=== PATIENT | male | born 1960 | race Caucasian/White ===

== ENCOUNTER 2018-10-30 08:31 | Outpatient (CLI) | payer BC | END 2018-10-30 08:32 | disposition home or self-care (01) | LOC: LAB.F 08:31 | PROVIDERS: ATTEND Urology | DX: R97.20 Elevated prostate specific antigen [PSA] (principal) | CPT/HCPCS: 36415; 84153 ==

== ENCOUNTER 2019-12-22 15:37 | Emergency (ER) | payer BC ==
[2019-12-22] MEDS ORDERED: SODIUM CHLORIDE 0.9% 1,000 ML IV ONE (16:01)
[2019-12-22] MEDS ORDERED: MECLIZINE 12.5 MG TABLET PO STA (16:01)
[2019-12-22] MEDS ORDERED: ONDANSETRON 4 MG/2 ML VIAL IVP STA (16:01)
--- NOTE | 2019-12-22 16:04 | ED Physician Documentation ---
PD HPI FOCAL NEURO - Stated complaint Stated Complaint: VOMITING, DIZZY - Chief complaint Chief Complaint: Abd Pain - History obtained from History obtained from: Patient (He been having intermittent vertigo over the last 2 weeks that was fleeting, lasting maybe a minute at a time. For the last 2 days the vertigo has been much more severe and constant and throwing up all day since yesterday. He feels tremulous and chilled, denies weakness, numbness, or tingling of the extremities. No headache. Before 2 weeks ago he had never had trouble with vertigo before. He did try Zofran yesterday which was helpful for the nausea. He tried an Kassie maneuver at home but was unable to tolerate it.) Review of Systems Ten Systems: 10 systems reviewed and negative Constitutional: denies: Fever, Chills Eyes: denies: Loss of vision, Decreased vision Ears: denies: Loss of hearing, Ear pain, Drainage/discharge Nose: denies: Rhinorrhea / runny nose, Congestion Throat: denies: Sore throat Cardiac: denies: Chest pain / pressure, Palpitations PD PAST MEDICAL HISTORY - Past Medical History Cardiovascular: None Respiratory: None Endocrine/Autoimmune: None GI: None : None, Benign prostate hypertrophy HEENT: None Psych: None Musculoskeletal: None Derm: None - Past Surgical History General: Other - Present Medications Home Medications: Ambulatory Orders Medication Instructions Recorded Confirmed Finasteride 5 mg PO 09/17/13 09/17/13 - Allergies Allergies/Adverse Reactions: Allergies Allergy/AdvReac Type Severity Reaction Status Date / Time No Known Drug Allergies Allergy Verified 09/17/13 07:41 PD ED PE NORMAL - Vitals Vital signs reviewed: Yes - General General: Alert and oriented X 3, No acute distress - HEENT HEENT: EOMI (With left sided nystagmus), Other (He is laying in the left lateral decubitus position with his left ear down) - Neck Neck: Supple, no meningeal sign, No bony TTP - Cardiac Cardiac: RRR, No murmur - Respiratory Respiratory: No respiratory distress, Clear bilaterally - Abdomen Abdomen: Normal bowel sounds, Soft, Non tender - Back Back: No CVA TTP, No spinal TTP - Derm Derm: Normal color, Warm and dry - Neuro Neuro: Alert and oriented X 3, No motor deficit, No sensory deficit, Other (Tremulous on [id number] testing without obvious ataxia, it is symmetric.) Eye Opening: Spontaneous Motor: Obeys Commands Verbal: Oriented GCS Score: 15 NIHSS - Time Time: 13:55 - Level of Consciousness Level of consciousness: (0) Alert, Keenly responsive LOC Questions: (0) Answers both Q's correct LOC Commands: (0) Performs both correctly - Gaze Best Gaze: (0) Normal - Visual Visual: (0) No loss - Facial Palsy Facial Palsy: (0) Normal, symmetrical movement - Motor Arms (both separate) Motor Arm (right): (0) No drift Motor Arm (left): (0) No drift - Motor Legs (both separate) Motor Leg (right): (0) No drift Motor Leg (left): (0) No drift - Limb Ataxia Limb Ataxia: (0) Absent - Sensory Sensory: (0) Normal - Best Language Best Language: (0) No aphasia - Dysarthria Dysarthria: (0) Normal - Extinction and Inattention (formally neg Extinction and inattention: (0) No abnormality - Total Score/Results Total Score/Result: 0 Results - Vitals Vitals: Vital Signs - 24 hr 12/22/19 12/22/19 12/22/19 15:47 16:13 17:43 Temperature 37.2 C Heart Rate 88 69 72 Respiratory 18 16 14 Rate Blood Pressure 167/103 H 164/92 H 169/96 H O2 Saturation 99 100 98 12/22/19 19:30 Temperature Heart Rate 70 Respiratory 20 Rate Blood Pressure 183/110 H O2 Saturation 98 Oxygen O2 Source Room air - Labs Labs: Laboratory Tests 12/22/19 12/22/19 16:03 16:03 WBC 12.4 H RBC 5.25 Hgb 15.4 Hct 44.2 MCV 84.2 MCH 29.3 MCHC 34.8 RDW 13.1 Plt Count 325 MPV 9.3 Neut # (Auto) 9.8 H Lymph # (Auto) 1.5 [place] # (Auto) 1.0 Eos # (Auto) 0.0 Baso # (Auto) 0.0 Absolute Nucleated RBC 0.00 Nucleated RBC % 0.0 Sodium 137 Potassium 3.9 Chloride 96 L Carbon Dioxide 27 Anion Gap 14.0 H BUN 19 Creatinine 0.9 Estimated GFR (MDRD) 86 L Glucose 147 H Calcium 9.6 Total Bilirubin 0.8 AST 25 ALT 20 Alkaline Phosphatase 50 Total Protein 7.6 Albumin 4.5 Globulin 3.1 Albumin/Globulin Ratio 1.5 Lipase 24 - Rads (name of study) MRI Brain Radiology: EMP read contemporaneously (No CVA or mass, small vessel ischemic disease and sinus mucosal thickening) PD MEDICAL DECISION MAKING - ED course ED course: 59-year-old gentleman with 2 days of vertigo and vomiting. Seemed peripheral but the long time course is concerning for CVA and an MRI of the brain was done without evidence of same. After the administration of meclizine he was feeling much better and we were able to complete an Kassie maneuver with improvement but not complete help but he passed an road test here with a walker. Departure - Departure Disposition: 01 Home, Self Care Clinical Impression: Vomiting, Vertigo Comments: Downtime Discharge instructions for Jason Lopez Date of service 12/22/2019 Attending physician Alexander Stovall MD Diagnosis vertigo Condition stable You were seen today for vertigo, there was a concern for stroke but MRI ruled this out. You are feeling better after meclizine and able to walk. I am giving you a prescription for this. You can also do the Kassie maneuver which we did here with some improvement at home. Always start with the right ear down. Foll ow-up with your doctor within 1 week. Return for new or worsening symptoms. Do not drive while taking meclizine as it is sedating. Prescription Meclizine 25 mg p.o. every 6 as needed dizziness #20
[2019-12-22 16:12] LABS: BASOPHILS % (AUTO) 0.3 %; EOSINOPHILS % (AUTO) 0.1 %; HGB - HEMOGLOBIN 15.4 g/dL (14.0-18.0); LYMPHOCYTES # (AUTO) 1.5 10^3/uL (1.5-3.5); LYMPHOCYTES % (AUTO) 12.1 %; MEAN CORPUSCULAR HEMOGLOBIN 29.3 pg (27.0-31.0); MEAN CORPUSCULAR HGB CONC 34.8 g/dL (32.0-36.0); MEAN CORPUSCULAR VOLUME 84.2 fL (80.0-94.0); MEAN PLATELET VOLUME 9.3 fL (7.4-11.4); MONOCYTES % (AUTO) 7.9 %; NEUTROPHILS # (AUTO) 9.8 10^3/uL (1.5-6.6); NEUTROPHILS % (AUTO) 78.9 %; PLT - PLATELET COUNT 325 10^3/uL (130-450); RED BLOOD COUNT 5.25 10^6/uL (4.70-6.10); RED CELL DISTRIBUTION WIDTH 13.1 % (12.0-15.0); WHITE BLOOD COUNT 12.4 x10^3/uL (4.8-10.8)
[2019-12-22 18:04] LABS: ALBUMIN 4.5 g/dL (3.2-5.5); ALBUMIN/GLOBULIN RATIO 1.5 (1.0-2.2); BILIRUBIN,TOTAL 0.8 mg/dL (0.2-1.0); CALCIUM 9.6 mg/dL (8.5-10.3); CREATININE 0.9 mg/dL (0.6-1.2); TOTAL PROTEIN 7.6 g/dL (6.7-8.2)
--- NOTE | 2019-12-22 21:40 | MRI Report ---
Reason: vertigo Procedure Date: 12/22/2019 Accession Number: [id number] / [id number] Procedure: MRI - Brain W/O CPT Code: Final Report FULL RESULT: EXAM: MRI BRAIN WITHOUT CONTRAST EXAM DATE: 12/22/2019 06:11 PM. CLINICAL HISTORY: Vertigo. COMPARISON: None. TECHNIQUE: Multiplanar, multisequence T1-weighted and fluid-sensitive MR sequences of the brain were performed. Sequences optimized for routine evaluation. Other: None. IV Contrast: None. FINDINGS: No abnormal restricted diffusion signal or magnetic susceptibility is identified in the brain parenchyma. No cerebellar tonsillar ectopia is identified. Age-appropriate prominence of the ventricles and sulci is noted. There are a few punctate FLAIR hyperintensities scattered throughout the cerebral hemisphere white matter. In addition there is a 1.1 cm FLAIR hyperintensity in the left frontal white matter. There is motion degradation on some of the imaging sequences. No abnormal T2 signal is present in the infratentorial brain. There is an expected flow void in the distal cervical ICA below the skull base bilaterally. The distal left cervical vertebral artery is poorly visualized. This might well be secondary to this being developmentally small. No mass is present in either orbit. Scattered paranasal sinus mucosal thickening is seen. No mass is present in either Meckel's cave. T2 hyperintense signal is seen in the mastoid air cells on the right. No abnormal T1 shortening is present in the brain parenchyma. IMPRESSION: 1. No acute CVA. 2. No intracranial mass. 3. FLAIR hyperintensities are seen in the cerebral hemisphere white matter bilaterally and in the amarilys. These are nonspecific and are commonly seen secondary to small vessel ischemic change. 4. Scattered paranasal sinus mucosal thickening. 5. Fluid versus mucosal thickening in mastoid air cells on the right. RADIA
[2019-12-22 23:43] VITALS: BP 174/111
== END 2019-12-22 21:45 | disposition home or self-care (01) ==
LOC: ED 15:37
DX: R42 Dizziness and giddiness (principal)
CPT/HCPCS: 36415; 70551; 80053; 83690; 85025; 96361; 96374; 99284; A9270

== ENCOUNTER 2020-06-09 08:11 | Outpatient (CLI) | payer BC | END 2020-06-09 08:12 | disposition home or self-care (01) | LOC: LAB.S 08:11 | PROVIDERS: ATTEND Urology | DX: R97.20 Elevated prostate specific antigen [PSA] (principal) | CPT/HCPCS: 36415; 84153 ==

== ENCOUNTER 2020-12-15 08:20 | Day surgery (SDC) | payer BC ==
[2020-12-15] MEDS ORDERED: LACTATED RINGERS 1,000 ML IV ONE ×2 (08:51→09:54)
[2020-12-15] MEDS ORDERED: fentaNYL 250 MCG/5 ML VIAL ONE (09:38)
[2020-12-15] MEDS ORDERED: MIDAZOLAM 2 MG/2 ML VIAL ONE ×2 (09:38→09:51)
[2020-12-15 10:44] VITALS: BP 153/87
== END 2020-12-15 08:21 | disposition home or self-care (01) ==
LOC: SDS 08:20
PROVIDERS: ATTEND Surgery
DX: Z12.11 Encounter for screening for malignant neoplasm of colon (principal); N40.2 Nodular prostate without lower urinary tract symptoms; K57.30 Diverticulosis of large intestine without perforation or abscess without bleeding; K64.8 Other hemorrhoids; Z86.010 Personal history of colon polyps; I10 Essential (primary) hypertension
CPT/HCPCS: 45378; J3010; J7120

== ENCOUNTER 2021-07-05 08:41 | Outpatient (CLI) | payer BC ==
[2021-07-05 15:22] LABS: PSA FREE 1.43 ng/mL (0.16-2.81)
[2021-07-05 15:23] LABS: PSA TOTAL 7.42 ng/mL (0.000-2.000)
== END 2021-07-05 08:42 | disposition home or self-care (01) ==
LOC: LAB.S 08:41
PROVIDERS: ATTEND Urology
DX: R97.20 Elevated prostate specific antigen [PSA] (principal)
CPT/HCPCS: 36415; 84153; 84154

== ENCOUNTER 2021-09-01 11:02 | Outpatient (CLI) | payer BC ==
[2021-09-01 14:33] LABS: BASOPHILS # (AUTO) 0.1 10^3/uL (0.0-0.1); BASOPHILS % (AUTO) 0.7 %; EOSINOPHILS # (AUTO) 0.1 10^3/uL (0.0-0.7); EOSINOPHILS % (AUTO) 1.4 %; HCT - HEMATOCRIT 42.7 % (42.0-52.0); HGB - HEMOGLOBIN 14.1 g/dL (14.0-18.0); LYMPHOCYTES # (AUTO) 1.9 10^3/uL (1.5-3.5); LYMPHOCYTES % (AUTO) 23.9 %; MEAN CORPUSCULAR HEMOGLOBIN 28.8 pg (27.0-31.0); MEAN CORPUSCULAR VOLUME 87.3 fL (80.0-94.0); MEAN PLATELET VOLUME 10.1 fL (7.4-11.4); MONOCYTES # (AUTO) 0.8 10^3/uL (0.0-1.0); MONOCYTES % (AUTO) 9.6 %; NEUTROPHILS # (AUTO) 5.1 10^3/uL (1.5-6.6); PLT - PLATELET COUNT 365 10^3/uL (130-450); RED BLOOD COUNT 4.89 10^6/uL (4.70-6.10); RED CELL DISTRIBUTION WIDTH 13.8 % (12.0-15.0)
[2021-09-01 15:24] LABS: ALBUMIN/GLOBULIN RATIO 1.5 (1.0-2.2); BILIRUBIN,TOTAL 0.8 mg/dL (0.2-1.0); CALCIUM 9.3 mg/dL (8.5-10.3); CREATININE 0.8 mg/dL (0.6-1.2); POTASSIUM 4.1 mmol/L (3.5-5.0); TOTAL PROTEIN 6.6 g/dL (6.7-8.2)
[2021-09-01 15:39] LABS: THYROID STIMULATING HORMONE 1.38 uIU/mL (0.34-5.60)
--- NOTE | 2021-09-01 16:52 | XRAY Report ---
PROCEDURE: Chest 2 View X-Ray INDICATIONS: COUGH TECHNIQUE: 2 view(s) of the chest. COMPARISON: None. FINDINGS: Surgical changes and devices: None. Lungs and pleura: Small bilateral pleural effusion is seen with bibasilar atelectasis/small infiltrat es. Increased bronchovascular markings in bilateral hilar region also noted. No gross pneumothorax. Mediastinum: Tortuous thoracic aorta is seen. Heart size is normal. Bones and chest wall: No suspicious bony abnormalities. Soft tissues appear unremarkable. IMPRESSION: Mild congestion and small bilateral pleural effusion with by basilar small infiltrate/at electasis. No gross pneumothorax. Reviewed by: Enmanuel Harris MD on 09/01/2021 4:51 PM PST Approved by: Enmanuel Harris MD on 09/01/2021 4:51 PM PST Station ID: [id number]
== END 2021-09-01 11:03 | disposition home or self-care (01) ==
LOC: DI.S 11:02
PROVIDERS: ATTEND Nurse Practitioner Family
DX: R05.9 Cough, unspecified (principal); I10 Essential (primary) hypertension; R09.89 Other specified symptoms and signs involving the circulatory and respiratory systems; J90 Pleural effusion, not elsewhere classified; J98.11 Atelectasis
CPT/HCPCS: 36415; 80053; 83880; 84443; 85025

== ENCOUNTER 2021-09-08 10:08 | Outpatient (CLI) | payer BC ==
[2021-09-08 15:19] LABS: CALCIUM 9.5 mg/dL (8.5-10.3); CREATININE 0.9 mg/dL (0.6-1.2); POTASSIUM 3.9 mmol/L (3.5-5.0)
== END 2021-09-08 10:09 | disposition home or self-care (01) ==
LOC: LAB.S 10:08
PROVIDERS: ATTEND Nurse Practitioner Family
DX: I10 Essential (primary) hypertension (principal)
CPT/HCPCS: 36415; 80048

== ENCOUNTER 2021-10-06 09:45 | Outpatient (CLI) | payer BC ==
[2021-10-06 15:46] LABS: CALCIUM 9.4 mg/dL (8.5-10.3); CREATININE 0.9 mg/dL (0.6-1.2); POTASSIUM 3.7 mmol/L (3.5-5.0)
== END 2021-10-06 09:46 | disposition home or self-care (01) ==
LOC: LAB.S 09:45
PROVIDERS: ATTEND Internal Medicine Cardiovascular Disease
DX: I10 Essential (primary) hypertension (principal)
CPT/HCPCS: 36415; 80048

== ENCOUNTER 2021-10-19 08:06 | Outpatient (CLI) | payer BC | END 2021-10-19 08:07 | disposition home or self-care (01) | LOC: DI 08:06 | PROVIDERS: ATTEND Nurse Practitioner Family | DX: R01.1 Cardiac murmur, unspecified (principal); I34.0 Nonrheumatic mitral (valve) insufficiency; I51.7 Cardiomegaly; I35.8 Other nonrheumatic aortic valve disorders; I34.1 Nonrheumatic mitral (valve) prolapse; I87.8 Other specified disorders of veins | CPT/HCPCS: 93306 ==

== ENCOUNTER 2021-11-26 04:18 | Outpatient (CLI) | payer BC | END 2021-11-26 04:19 | disposition critical access hospital (66) | LOC: EMS 04:18 | DX: R07.9 Chest pain, unspecified (principal) | CPT/HCPCS: A0425; A0429 ==

== ENCOUNTER 2021-11-26 04:46 | Observation (INO) | payer BC ==
--- NOTE | 2021-11-26 04:49 | ED Physician Documentation ---
PD HPI CHEST PAIN - Stated complaint Stated Complaint: SOA - History obtained from History obtained from: Patient - History of Present Illness Timing - onset: Enter time (03:00), Today Timing - onset during: Sleep Timing - details: Abrupt onset Pain level now: 4 Quality: Pain Location: Left chest Radiation: Other (no radiation) Improved by: Rest Worsened by: Exertion ((dyspnea worse with exertion)) Associated symptoms: Shortness of air, Diaphoresis. No: Nausea, Vomiting, Palpitations Similar symptoms before: No diagnosis Recently seen: Not recently seen - Additional information Additional information: BIBA. Patient awoke from sleep approximately 3 AM with dyspnea and mild left- sided chest pain. Symptoms worse with lying supine, improved with sitting up (particularly the dyspnea), and the dyspnea was markedly worse with any exertion. EMS noted 87% pulse ox on room air, improved to 96% with 2 liters [place] oxygen; patient has no pulmonary diagnoses and does not use oxygen at home. Denies cough, denies fever. He is COVID vaccinated with booster. Review of Systems Constitutional: reports: Reviewed and negative Eyes: reports: Reviewed and negative Ears: reports: Reviewed and negative Nose: reports: Reviewed and negative Throat: reports: Reviewed and negative Cardiac: reports: Chest pain / pressure. denies: Palpitations, Pedal edema, Calf pain Respiratory: reports: Dyspnea. denies: Cough, Hemoptysis, Wheezing GI: reports: Reviewed and negative : denies: Dysuria, Frequency Skin: reports: Reviewed and negative Musculoskeletal: reports: Reviewed and negative Neurologic: reports: Reviewed and negative PD PAST MEDICAL HISTORY - Past Medical History Cardiovascular: Hypertension Respiratory: None Endocrine/Autoimmune: None GI: Colon polyps : None HEENT: None Psych: None Musculoskeletal: None Derm: None - Past Surgical History Past Surgical History: No General: Other - Present Medications Home Medications: Ambulatory Orders Medication Instructions Recorded Confirmed Finasteride 5 mg PO DAILY 09/17/13 11/26/21 Valsartan 160 mg PO DAILY 11/26/21 11/26/21 hydroCHLOROthiazide [Hydrodiuril] 12.5 mg PO DAILY 11/26/21 11/26/21 - Allergies Allergies/Adverse Reactions: Allergies Allergy/AdvReac Type Severity Reaction Status Date / Time No Known Drug Allergies Allergy Verified 11/26/21 05:56 - Social History Does the pt smoke?: No Smoking Status: Never smoker Does the pt drink ETOH?: No Does the pt have substance abuse?: No - Immunizations Immunizations are current?: Yes PD ED PE NORMAL - Vitals Vital signs reviewed: Yes - General General: Alert and oriented X 3, No acute distress, Well developed/nourished - HEENT HEENT: Moist mucous membranes - Neck Neck: Supple, no meningeal sign - Cardiac Cardiac: RRR - Respiratory Respiratory: No respiratory distress (at rest (later in ED stay, obvious respiratory distress when ambulating to/from bathroom)) - Abdomen Abdomen: Soft, Non tender - Back Back: No CVA TTP - Derm Derm: Normal color, Warm and dry - Extremities Extremities: No edema PD ED PE EXPANDED - Cardiac Cardiac: Regular Rhythm, Murmur Present (3/6 WAYNE diffusely but greatest at apex) - Respiratory Respiratory: Other (bibasilar rales) Results - Vitals Vitals: Vital Signs - 24 hr 11/26/21 11/26/21 11/26/21 04:54 05:18 05:19 Temperature 37.6 C Heart Rate 106 H 88 Respiratory 22 33 H 21 Rate Blood Pressure 174/118 H 168/103 H O2 Saturation 92 88 L 98 11/26/21 11/26/21 11/26/21 06:36 07:54 08:58 Temperature Heart Rate 84 86 Respiratory 20 18 28 H Rate Blood Pressure 116/115 H 152/100 H 141/95 H O2 Saturation 96 96 90 L Oxygen O2 Source Room air - EKG (time done) No standard instances Rate: Rate (enter#) (83) Rhythm: NSR [place]: Normal Intervals: Normal NV QRS: Normal Ischemia: Normal ST segments, Other (prominent R wave V2) - Labs Labs: Laboratory Tests 11/26/21 11/26/21 11/26/21 05:24 05:24 05:24 WBC 9.6 RBC 5.04 Hgb 14.6 Hct 42.3 MCV 83.9 MCH 29.0 MCHC 34.5 RDW 13.6 Plt Count 343 MPV 9.6 Neut # (Auto) 7.0 H Lymph # (Auto) 1.7 [place] # (Auto) 0.7 Eos # (Auto) 0.1 Baso # (Auto) 0.1 Absolute Nucleated RBC 0.00 Nucleated RBC % 0.0 Sodium 138 Potassium 3.5 Chloride 102 Carbon Dioxide 24 Anion Gap 12.0 BUN 16 Creatinine 0.8 Estimated GFR (MDRD) 98 Glucose 115 H Calcium 8.9 Total Bilirubin 1.0 AST 23 ALT 18 Alkaline Phosphatase 40 L Troponin I High Sens 20.5 H* B-Natriuretic Peptide Total Protein 7.4 Albumin 4.3 Globulin 3.1 Albumin/Globulin Ratio 1.4 Lipase 32 Nasal Adenovirus (PCR) Nasal B. parapertussis DNA (PCR) Nasal Coronavir 229E PCR Nasal Coronavir HKU1 PCR Nasal Coronavir NL63 PCR Nasal Coronavir OC43 PCR Nasal Enterovir/Rhinovir PCR Nasal Influenza B PCR Nasal Influenza A PCR Nasal Parainfluen 1 PCR Nasal Parainfluen 2 PCR Nasal Parainfluen 3 PCR Nasal Parainfluen 4 PCR Nasal RSV (PCR) Nasal B.pertussis DNA PCR Nasal C.pneumoniae (PCR) Imtiaz Human Metapneumo PCR Nasal M.pneumoniae (PCR) Nasal SARS-CoV-2 (PCR) 11/26/21 11/26/21 05:24 06:00 WBC RBC Hgb Hct MCV MCH MCHC RDW Plt Count MPV Neut # (Auto) Lymph # (Auto) [place] # (Auto) Eos # (Auto) Baso # (Auto) Absolute Nucleated RBC Nucleated RBC % Sodium Potassium Chloride Carbon Dioxide Anion Gap BUN Creatinine Estimated GFR (MDRD) Glucose Calcium Total Bilirubin AST ALT Alkaline Phosphatase Troponin I High Sens B-Natriuretic Peptide 280 H Total Protein Albumin Globulin Albumin/Globulin Ratio Lipase Nasal Adenovirus (PCR) NOT DETECTED Nasal B. parapertussis DNA (PCR) NOT DETECTED Nasal Coronavir 229E PCR NOT DETECTED Nasal Coronavir HKU1 PCR NOT DETECTED Nasal Coronavir NL63 PCR NOT DETECTED Nasal Coronavir OC43 PCR NOT DETECTED Nasal Enterovir/Rhinovir PCR NOT DETECTED Nasal Influenza B PCR NOT DETECTED Nasal Influenza A PCR NOT DETECTED Nasal Parainfluen 1 PCR NOT DETECTED Nasal Parainfluen 2 PCR NOT DETECTED Nasal Parainfluen 3 PCR NOT DETECTED Nasal Parainfluen 4 PCR NOT DETECTED Nasal RSV (PCR) NOT DETECTED Nasal B.pertussis DNA PCR NOT DETECTED Nasal C.pneumoniae (PCR) NOT DETECTED Imtiaz Human Metapneumo PCR NOT DETECTED Nasal M.pneumoniae (PCR) NOT DETECTED Nasal SARS-CoV-2 (PCR) NOT DETECTED - Rads (name of study) chest xray Radiology: Prelim report reviewed, See rad report CT chest Radiology: Prelim report reviewed, See rad report PD MEDICAL DECISION MAKING - ED course Complexity details: reviewed old records, reviewed results, re-evaluated patient, considered differential, d/w patient ED course: chief complaint is dyspnea waking him from sleep 3 AM, markedly worse with exertion. He is hypoxic on room air but corrects to mid 90s with 2 liters NC oxygen. CXR shows bilateral pleural effusions as well as left lower lobe airspace disease s/o pneumonia. He is afebrile and WBC normal and thus CT chest undertaken to investigate PE as possible cause; the result is pending at end of my shift, care of patient turned over to Dr. Treadwell pending results and subsequent disposition. He is given 60 lasix IV early in ED stay. He had echocardiogram performed 10/19/21 which showed preserved EF 55-60%, moderate-severe mitral regurgitation Departure - Departure Disposition: ED Place in Observation Clinical Impression: Exercise hypoxemia, New onset of congestive heart failure, Pleural effusion Dyspnea Qualifiers: Dyspnea type: shortness of breath Qualified Code(s): R06.02 - Shortness of breath Condition: Stable Discharge Date/Time: 11/26/21 11:08
[2021-11-26 05:30] LABS: BASOPHILS # (AUTO) 0.1 10^3/uL (0.0-0.1); BASOPHILS % (AUTO) 0.7 %; EOSINOPHILS # (AUTO) 0.1 10^3/uL (0.0-0.7); HCT - HEMATOCRIT 42.3 % (42.0-52.0); HGB - HEMOGLOBIN 14.6 g/dL (14.0-18.0); LYMPHOCYTES # (AUTO) 1.7 10^3/uL (1.5-3.5); LYMPHOCYTES % (AUTO) 17.6 %; MEAN CORPUSCULAR HGB CONC 34.5 g/dL (32.0-36.0); MEAN CORPUSCULAR VOLUME 83.9 fL (80.0-94.0); MEAN PLATELET VOLUME 9.6 fL (7.4-11.4); MONOCYTES # (AUTO) 0.7 10^3/uL (0.0-1.0); MONOCYTES % (AUTO) 7.4 %; NEUTROPHILS % (AUTO) 73.1 %; PLT - PLATELET COUNT 343 10^3/uL (130-450); RED BLOOD COUNT 5.04 10^6/uL (4.70-6.10); RED CELL DISTRIBUTION WIDTH 13.6 % (12.0-15.0); WHITE BLOOD COUNT 9.6 x10^3/uL (4.8-10.8)
[2021-11-26 05:43] LABS: ALBUMIN 4.3 g/dL (3.2-5.5); ALBUMIN/GLOBULIN RATIO 1.4 (1.0-2.2); CALCIUM 8.9 mg/dL (8.5-10.3); CREATININE 0.8 mg/dL (0.6-1.2); POTASSIUM 3.5 mmol/L (3.5-5.0); TOTAL PROTEIN 7.4 g/dL (6.7-8.2)
[2021-11-26] MEDS ORDERED: FUROSEMIDE 40 MG/4 ML VIAL IVP STA (05:44)
[2021-11-26 07:06] LABS: B. PARAPERTUSSIS- RESP PCR PAN NOT DETECTED; B. PERTUSSIS- RESP PCR PANEL NOT DETECTED; C. PNEUMONIAE- RESP PCR PANEL NOT DETECTED; CORONAVIRUS 229E-RESP PCR NOT DETECTED; CORONAVIRUS HKU1-RESP PCR NOT DETECTED; CORONAVIRUS NL63-RESP PCR NOT DETECTED; CORONAVIRUS OC43-RESP PCR NOT DETECTED; HUMAN METAPNEUMOVIRUS NOT DETECTED; INFLUENZA A- RESP PCR PANEL NOT DETECTED; INFLUENZA B - RESP PCR PANEL NOT DETECTED; M. PNEUMONIAE- RESP PCR PANEL NOT DETECTED; PARAINFLUENZA VIRUS 1 NOT DETECTED; PARAINFLUENZA VIRUS 2 NOT DETECTED; PARAINFLUENZA VIRUS 3 NOT DETECTED; PARAINFLUENZA VIRUS 4 NOT DETECTED; RHINOVIRUS/ENTEROVIRUS NOT DETECTED; RSV- RESP PCR PANEL NOT DETECTED; SARS-CoV-2 -RESP PCR PANEL NOT DETECTED
[2021-11-26] MEDS ORDERED: IOVERSOL 320 100 ML VIAL IVP ONE ×2 (07:18→07:44)
--- NOTE | 2021-11-26 08:15 | CT Report ---
PROCEDURE: ANGIO CHEST W/WO INDICATIONS: hypoxia, dyspnea CONTRAST: IV CONTRAST: Optiray 320 ml: 80 PO CONTRAST: *NO PO CONTRAST TECHNIQUE: After the administration of intravenous contrast, 2 mm axial images were acquired from the pulmonary apices to the posterior costophrenic angles during the arterial phase. In addition, 1 mm lung kernel and 5 mm soft tissue kernel reconstructions were performed. 3-dimensional coronal oblique maximum int ensity projection (MIP) reformats, 8 mm axial MIP, and 5 mm coronal and sagittal MPR reformats were t hen performed through the thorax. For radiation dose reduction, the following was used: automated exp osure control, adjustment of mA and/or kV according to patient size. COMPARISON: Correlation is made with the accompanying chest radiograph, 11/26/2021. FINDINGS: Image quality: Excellent. Pulmonary arteries: Moderate bilateral pleural effusions are seen, left larger than right. Overlying consolidated lung can be seen with enhancement, which is attributed to atelectasis. There is no pneu mothorax. The central airways are patent. Lungs and pleura: Lungs are clear. No pleural effusions or pneumothorax. Central and peripheral ai rways are patent. Mediastinum: Heart size is normal, without pericardial effusion. No mediastinal or hilar adenopathy . Thoracic aorta is normal in caliber and enhancement. Esophagus is normal in caliber, without hiat al hernia. Bones and chest wall: No suspicious bony lesions. Age-appropriate degenerative changes are seen. T here is accentuated thoracic kyphosis. Ribs and thoracic spine appear intact throughout. No axilla ry or supraclavicular adenopathy. The thyroid is small in size and demonstrates no focal abnormaliti es. Abdomen: Fluid and apparent extraluminal gas can be seen adjacent to the fundus of the stomach, as on series 5 images 142 through 148 and on series 12 images 25 through 29. A few diverticula can be seen involving the splenic flexure of the colon. A low-density liver lesion is seen involving the right liver laterally that measures 2 cm and 24 Hounsfield units. The visualize d portions of the upper abdominal structures are otherwise within normal limits. IMPRESSION: Moderate bilateral pleural effusions are seen. Overlying presumed atelectasis is seen. Infectious inf iltrate is considered to be less likely based upon the CT appearance. Negative for pulmonary embolism. Adjacent to the fundus of the stomach, there is apparent extraluminal gas. Differential diagnosis wou ld include a gastric diverticulum or fluid and gas within a gastric recess, such as following Cherry fundoplication. If clinically appropriate, please consider a follow-up study of the abdomen and pelvi s performed with water based oral contrast. 2 cm likely liver cyst or hemangioma. Note: Findings and recommendations discussed by telephone with Dr. Treadwell at 7:10 AM [place] time on 11/26/2021. Reviewed by: Rajan Weir MD on 11/26/2021 7:13 AM [facility] Approved by: Rajan Weir MD on 11/26/2021 7:13 AM [facility] Station ID: [id number]
--- NOTE | 2021-11-26 08:17 | XRAY Report ---
PROCEDURE: Chest 2 View X-Ray INDICATIONS: chest pain, dyspnea TECHNIQUE: 2 view(s) of the chest. COMPARISON: 09-20 Correlation is made with the subsequently performed chest CT 11/26/2021. FINDINGS: Surgical changes and devices: None. Lungs and pleura: Moderately sized bilateral pleural effusions are seen, which are minimally increase d in size compared to the 09-20 examination. Poorly defined opacities can be seen at both lung bases, left worse than right. There is no pneumothorax. Mediastinum: Mediastinal contours are normal. Heart size is normal. Bones and chest wall: No suspicious bony abnormalities. Age-appropriate degenerative changes are se en. Soft tissues appear unremarkable. IMPRESSION: Moderate bilateral pleural effusions with probable ill-defined opacities at the lung bas es. Differential diagnosis based upon the appearance on chest x-ray includes atelectasis and infiltra te. Based upon the CT appearance, atelectasis is favored. Note: No significant discrepancy from the preliminary report. Note: Case discussed by telephone with Dr. Treadwell at 7:10 AM [place] time on 11/26/2021. Reviewed by: Rajan Weir MD on 11/26/2021 7:16 AM [facility] Approved by: Rajan Weir MD on 11/26/2021 7:16 AM [facility] Station ID: [id number]
[2021-11-26] MEDS ORDERED: POTASSIUM CHLORIDE 20 MEQ TABLET PO STA (08:27)
--- NOTE | 2021-11-26 09:36 | ED Physician Documentation ---
ED Addendum - Addendum Addendum: The patient is feeling less short of breath on the time of change of shift. His oxygenation is now 94 to 95% on room air. However he walked to the bathroom and back and was down to 88 to 90% on room air and continue that way for at least 10 minutes so poor recovery from that as well. He was feeling quite winded with that activity. His CT scan showed no PEs. There was bilateral moderate in full effusions and left lower infiltrate which to the radiologist appeared more atelectasis than pneumonic. There was question of a small bubble of air just adjacent to the gastric fundus and he suggested clinic [place] correlating. I checked with the patient and he was still feeling short of breath having been for several minutes from just walking 30 feet. Evaluation of his abdomen shows no tenderness in the upper abdomen and he denied any abdominal pain or nausea. I think the CT finding was the alternate explanation of a gastric diverticulum as clinically does not correlate with ruptured viscus. He is however having new onset CHF with effusions. He had an echocardiogram on 10/29/2021 that showed good ejection fraction but a moderate MR. He has just mild edema in both ankles. I believe he needs further diuresis and probably changing his losartan to a beta-juanpablo and adding diuretics. He does need further diuresis here in the hospital though. I talked with the hospitalist who will place the patient in observation. Disposition: The patient is placed in observation in the hospital in stable condition Diagnoses: 1. Acute dyspnea with activity 2. Hypoxia with activity 3. New onset CHF with bilateral effusions 4. Mitral regurg irritation 11/26/21 09:32
[2021-11-26] MEDS ORDERED: ACETAMINOPHEN 325 MG TABLET PO PRN (10:36)
[2021-11-26] MEDS ORDERED: ONDANSETRON 4 MG/2 ML VIAL IVP PRN (10:36)
[2021-11-26] MEDS ORDERED: SODIUM CHLORIDE FLUSH 0.9% 10 ML SYRINGE IVP PRN (10:36)
--- NOTE | 2021-11-26 10:49 | HISTORY & PHYSICAL EXAMINATION ---
Chief Complaint - Chief Complaint Chief Complaint: Shortness of breath History of Present Illness - Admitted From Admitted From:: ED - History Obtained From History obtained from: ED provider and the patient - History of Present Illness HPI Comment/Other: This is a 61-year-old white male with a history of hypertension on Losartan and BPH on finasteride. He had an echo done just 1 month ago as an outpatient to evaluate shortness of breath and this showed normal LVEF of 60%, severe LV diastolic dysfunction and moderate to severe mitral regurgitation. The patient has had shortness of breath with activity for 3-4 months and last night developed rapidly worsening orthopnea. He woke up from sleep at 3 AM with the SOB and then slept sitting upright in a recliner, where he noticed L anterior pleuritic CP which he thought was indigestion, and then had chills and sweats. He also did not feel better with SOB and called an ambulance. In the ED was found to have CHF on chest x-ray including significant bilateral pleural effusions. He was given IV Lasix and has started to have diuresis. He had a borderline abnormal oxygen saturation of 90% on room air and was placed on 2 L of oxygen nasal cannula. With activity in the ED, despite being on 2L of oxygen, he desaturated to 88% and it took about 10 minutes to recover to 90% saturation or greater. A CT chest was done because of suspicion for pneumonia on CXR, and this showed no PE, LLL atelectasis versus pneumonia and the bilateral pleural effusions, rated moderate. The patient is being placed in Observation status to manage his pleural effusions from presumed CHF, possible community-acquired pneumonia and hypoxia. The patient describes that his PCP heard a loud murmur recently and ordered an Echo which was done 1 month ago. The patient is not sure if the murmur was heard previously. The Echo revealed moderate to severe mitral regurgitation and severe LV diastolic dysfunction. He was referred to Dr. Elmer Gonzales of Cardiology who has planned a coronary angio and a visit with Dr Gomez for mitral valve repair. He had a F/U visit with Dr Koch 2 days ago, who changed his Losartan to Valsartan and added HCTZ. The patient used to walk a mile a day, now for the last 3 mos, has SOB at 30 feet, he reported. We discussed CODE BLUE status and he wishes to be a Full Code. History - Past Medical History Cardiovascular: reports: Hypertension Respiratory: reports: None Neuro: reports: None Endocrine/Autoimmune: reports: None GI: reports: Colon polyps : reports: Benign prostate hypertrophy HEENT: reports: None Psych: reports: None Musculoskeletal: reports: None Derm: reports: None MRSA Hx?: No - Past Surgical History General: reports: Other - Family & Social History Family History: Mother: (Father of 2 MIs at age 62, Mother had sz and of old age), Father: , Sister: Alive and Well, Brother: Alcoholism Family History Comment/Other: He has 1 child, a daughter, who is healthy. Living arrangement: At home Living Situation: With spouse/s.o. 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 He is active and takes walks every day. He never smoked cigarettes and drinks no alcohol. He very rarely smokes marijuana. - Substance History Use: Uses substance without health or social issues: NONE - POLST Patient has POLST: Yes POLST Status: Full Code Meds/Allgy - Home Medications Home Medications: Ambulatory Orders Medication Instructions Recorded Confirmed Finasteride 5 mg PO DAILY 09/17/13 11/26/21 Valsartan 160 mg PO DAILY 11/26/21 11/26/21 hydroCHLOROthiazide [Hydrodiuril] 12.5 mg PO DAILY 11/26/21 11/26/21 - Allergies Allergies/Adverse Reactions: Allergies Allergy/AdvReac Type Severity Reaction Status Date / Time No Known Drug Allergies Allergy Verified 11/26/21 05:56 Review of Systems - Cardiovascular Cariovascular: reports: Exertional dyspnea, Orthopnea - Respiratory Respiratory: reports: Cough (He has a cough of postnasal drip for the last 2 to 3 years.), Orthopnea, Pleuritic pain (He had pleuritic chest pain this morning, never previously) - All Other Systems All Other Systems: reports: Reviewed and negative Exam - Vital Signs Reviewed Vital Signs: Yes Vital Signs: Vital Signs x48h Temp Pulse Resp BP Pulse Ox 11/26/21 10:00 75 16 145/96 H 94 11/26/21 08:58 86 28 H 141/95 H 90 L 11/26/21 07:54 84 18 152/100 H 96 11/26/21 06:36 20 116/115 H 96 11/26/21 05:19 21 98 11/26/21 05:18 88 33 H 168/103 H 88 L 11/26/21 04:54 37.6 C 106 H 22 174/118 H 92 - Physical Exam General Appearance: positive: Mild distress (Air hunger when speaking) Eyes Bilateral: positive: Normal inspection, PERRL, EOMI ENT: positive: ENT inspection nml, No signs of dehydration Neck: positive: Nml inspection, No JVD Respiratory: positive: Rhonchi (L base) Cardiovascular: positive: Regular rate & rhythm, Systolic murmur (3-4/6 holosystolic, loudest at apex, radiates throughout pericardium) Abdomen: positive: Non-tender, No organomegaly, Nml bowel sounds, No distention Skin: positive: Warm, Dry Extremities: positive: Non-tender, No pedal edema Neurologic/Psychiatric: positive: Oriented x3 (Non-focal) Conclusion/Plan - Problem List (1) Acute respiratory failure with hypoxia Conclusion/Plan: The patient was borderline desaturating at presentation on room air and then definitely desaturating with activity. The etiology appears to be his pleural effusions which are significant (moderate and bilateral). The cause of those is likely CHF. He also may have a community- acquired pneumonia, since an infiltrate seen. We will treat the underlying volume overload and the pneumonia. Continue with supplemental oxygen, weaning down to room air as possible, keeping his sats greater than 90%. (2) CAP (community acquired pneumonia) Conclusion/Plan: He has had a chronic cough that he cannot expectorate. He did have diaphoresis and chills this morning as well as left pleuritic chest pain. We will manage this as if this is consolidation not atelectasis, to be complete in his care. We will order sputum culture. We will begin empiric antibiotics using oral Zithromax and IV ceftriaxone daily. Start a probiotic. Will order Mucinex for pulmonary toilet. O2 supplemental, as above (3) Acute on chronic diastolic CHF (congestive heart failure), NYHA class 4 Conclusion/Plan: He presented with marked and sudden orthopnea after months of having dyspnea on exertion. An Echo was just done a month ago showing significant primary valvular heart disease (moderate to severe mitral regurgitation), and severe LV diastolic heart failure (pseudonormalization of LV inflow seen on his pulsed wave Doppler exam). We will treat with IV diuretics, follow I's and O's, daily weights. Monitor his electrolytes and magnesium during the diuresis. We will also begin empiric carvedilol for diastolic heart failure, target resting HR 60. He will need outpatient cardiology management after DCh, and eventual referral to for a MitraClip or to cardiothoracic surgery for a mitral valve repair, before his LVEF drops. (4) Pleural effusion Conclusion/Plan: The etiology is most likely from his CHF since is bilateral, and not a parapne umonic effusion. We will treat with IV diuretics. Follow I's and O's, daily weights, potassium and magnesium during diuresis. (5) Valvular heart disease Conclusion/Plan: This appears to be a primary valvular problem leading to diastolic heart failure. His murmur is loud and audible at the apex. He will need Cardiology outpt management and referral for a MitraClip or to Cardiothoracic surgery for mitral valve repair before the LVEF drops. (6) Abnormal EKG Conclusion/Plan: The EKG is consistent with cor pulmonale. There is no old EKG available for comparison. The Echo done 1 month ago did not show right ventricular failure. Will recheck another troponin level to assure this is not am NSTEMI/ischemic EKG. Will order telemetry monitoring while he is here. (7) HTN (hypertension) Conclusion/Plan: We will use his valsartan, hold his HCTZ and start Lasix IV and also start low- dose carvedilol, for treating his HTN. (8) BPH (benign prostatic hyperplasia) Conclusion/Plan: Continue home dose of Finasteride - Lab Results Lab results reviewed: Yes Fish Bones: 11/26/21 05:24 11/26/21 05:24 - Diagnostic Imaging Results Diagnostic Imaging Results: positive: Final report reviewed - EKG Results EKG Interpreted Independently: Yes EKG Comparison: Old EKG unavailable EKG Findings: Normal sinus rhythm, early R/S transition. No old EKG available for comparison. - Other Other Results/Comments: Attestation: The patient is expected to be discharged or transferred to another facility within 96 hours: Yes.
[2021-11-26] MEDS: carvediloL 3.125 MG TABLET PO SCH ×2 (12:23→20:59)
[2021-11-26] MEDS: FUROSEMIDE 20 MG/2 ML VIAL IVP SCH (14:32)
[2021-11-26] MEDS: AZITHROMYCIN 250 MG TABLET PO SCH (14:32)
[2021-11-26] MEDS: cefTRIAXone 2 GM in SODIUM CHLORIDE 0.9% MINIBAG 100 ML IV SCH (14:34)
[2021-11-26] MEDS: SODIUM CHLORIDE FLUSH 0.9% 10 ML SYRINGE IVP SCH (17:01)
[2021-11-26] MEDS: SACCHAROMYCES BOULARDII 250 MG CAPSULE PO SCH (17:01)
[2021-11-26] MEDS: guaiFENesin 600 MG TABLET PO SCH (20:59)
[2021-11-27 05:09] LABS: BASOPHILS # (AUTO) 0.1 10^3/uL (0.0-0.1); BASOPHILS % (AUTO) 0.7 %; EOSINOPHILS # (AUTO) 0.2 10^3/uL (0.0-0.7); EOSINOPHILS % (AUTO) 2.1 %; HCT - HEMATOCRIT 40.7 % (42.0-52.0); HGB - HEMOGLOBIN 13.6 g/dL (14.0-18.0); LYMPHOCYTES # (AUTO) 2.4 10^3/uL (1.5-3.5); LYMPHOCYTES % (AUTO) 29.4 %; MEAN CORPUSCULAR HEMOGLOBIN 28.3 pg (27.0-31.0); MEAN CORPUSCULAR HGB CONC 33.4 g/dL (32.0-36.0); MEAN CORPUSCULAR VOLUME 84.8 fL (80.0-94.0); MEAN PLATELET VOLUME 9.8 fL (7.4-11.4); MONOCYTES # (AUTO) 0.9 10^3/uL (0.0-1.0); MONOCYTES % (AUTO) 10.7 %; NEUTROPHILS # (AUTO) 4.6 10^3/uL (1.5-6.6); NEUTROPHILS % (AUTO) 56.9 %; PLT - PLATELET COUNT 337 10^3/uL (130-450); RED CELL DISTRIBUTION WIDTH 13.7 % (12.0-15.0); WHITE BLOOD COUNT 8.2 x10^3/uL (4.8-10.8)
[2021-11-27 05:19] LABS: CREATININE 0.9 mg/dL (0.6-1.2); MAGNESIUM 2.1 mg/dL (1.7-2.8); POTASSIUM 3.4 mmol/L (3.5-5.0)
[2021-11-27] MEDS: FUROSEMIDE 20 MG/2 ML VIAL IVP SCH (05:31)
[2021-11-27] MEDS: SACCHAROMYCES BOULARDII 250 MG CAPSULE PO SCH (07:33)
[2021-11-27] MEDS: carvediloL 3.125 MG TABLET PO SCH (08:32)
[2021-11-27] MEDS: AZITHROMYCIN 250 MG TABLET PO SCH (08:32)
[2021-11-27] MEDS: guaiFENesin 600 MG TABLET PO SCH (08:33)
[2021-11-27] MEDS: cefTRIAXone 2 GM in SODIUM CHLORIDE 0.9% MINIBAG 100 ML IV SCH (08:33)
[2021-11-27] MEDS: SODIUM CHLORIDE FLUSH 0.9% 10 ML SYRINGE IVP SCH ×2 (08:34)
--- NOTE | 2021-11-27 08:49 | PHARMACY PROGRESS NOTE ---
- Best Possible Medication History Admit Date and Time: 11/26/21 0930 Processed by: Pharmacy Medication History completed: Yes Secondary Source(s): Insurance records As the person ultimately responsible for medication therapy, providers are able to order a medication from an existing home medication list in [facility] via the "Reconcile Routine" prior to Confirmation of that medication by client application support specialist. Such practice is discouraged except when the physician, in their clinical judgment, deems that a medical need exists for a medication without regard to previous use.
[2021-11-27] MEDS ORDERED: LOSARTAN 50 MG TABLET PO SCH (09:00)
[2021-11-27] MEDS ORDERED: FINASTERIDE 5 MG TABLET PO SCH (09:00)
[2021-11-27] MEDS ORDERED: ENOXAPARIN 40 MG/0.4 ML SYRINGE SUBQ SCH (09:00)
--- NOTE | 2021-11-27 11:14 | Discharge Plan ---
Discharge Plan Problem Reviewed?: Yes Disposition: Home, Self Care Condition: Fair Prescriptions: carvediloL [Coreg] 3.125 mg PO BID #60 tablet Furosemide [Lasix] 20 mg PO DAILY #30 tablet Magnesium 250 mg PO DAILY #30 tablet Potassium Chloride [Micro-K] 10 meq PO DAILY #30 cap Azithromycin [Zithromax] 250 mg PO DAILY #2 tablet Diet: Low Sodium (Water restrict please to 1/2 glass with meals) Activity Restrictions: Activity as Tolerated Shower Restrictions: No Driving Restrictions: No Instruction Topics: Heart Failure Diet Changes, Heart Failure Tracking Weight, Heart Failure Warning Signs Health Concerns: You were hospitalized in Observation status to adjust your medications for fluid overload in your lungs and a mild pneumonia. You needed supplemental oxygen temporarily. You are new medicines now to help eliminate extra water. Please follow the new list of medications, do not take the HCTZ anymore. The new prescriptions were sent to the [facility] pharmacy in [place]. You should take the Furosemide pill every morning and this medicine makes you lose potassium and magnesium in your urine. Therefore, 1 tablet of potassium and magnesium are also ordered to take daily. If you should skip your Furosemide (for a long trip, for example), do not take the potassium or magnesium on that day. Please use the attached reading material to help you manage this condition which is called "Congestive Heart Failure". You were tested to see if you qualify for home oxygen, and on these new medications, your oxygen level remained stable and you did not qualify for home oxygen order. Please proceed with the appointments for the angiogram and with getting scheduled for the mitral valve repair. Please see your PCP in follow-up and Dr. Gonzales, your [employer] [facility], as previously arranged. Plan of Treatment: As above. Care Goals: Improvement in symptoms and stabilization are the goals. Assessment: Patient understands and is agreeable with the plan. Additional Instructions or Follow Up instructions: If you have new or worsening symptoms, call your PCP or your [employer] [facility] for advice, or come to the ER. No Smoking: If you smoke, Please STOP! Call for help. Follow-up with: RENAN REESE ARNP [Primary Care Provider] -
--- NOTE | 2021-11-27 11:30 | DISCHARGE SUMMARY ---
Discharge Summary Admit Date: 11/26/21 Discharge Date: 11/27/21 Discharging Provider: Dr Lydia Sanderson Primary Care Provider: JUSTICE Smith Code Status: Attempt Resuscitation Condition at Discharge: Fair Discharge Disposition: 01 Home, Self Care - HPI History of Present Illness: This is a 61-year-old white male with a history of hypertension on Losartan and BPH on Finasteride. He had an Echo done just 1 month ago as an outpatient to evaluate shortness of breath. The patient describes that his PCP heard a loud murmur recently and ordered this Echo. The patient is not sure if the murmur was heard previously. The Echo revealed moderate to severe mitral regurgitation and severe LV diastolic dysfunction. He was referred to Dr. Elmer Gonzales of Cardiology who has planned a coronary angio and a visit with Dr Gomez for mitral valve repair. The pt had a F/U visit with Dr Koch 2 days ago, who changed his Losartan to Valsartan (out of stock in [place]) and added HCTZ. The patient used to walk a mile a day, now for the last 3 mos, he has SOB at 30 feet, he reported. The patient has had shortness of breath with minimal activity for 3-4 months and last night developed rapidly worsening orthopnea. He woke up from sleep at 3 AM with the SOB and then slept sitting upright in a recliner, where he noticed L anterior pleuritic CP which he thought was indigestion, and then had chills and sweats. He also had persistent SOB and called an ambulance. In the ED, he was found to have CHF on chest x-ray including significant bilateral pleural ef fusions. He was given IV Lasix and has started to have diuresis. He had a borderline abnormal oxygen saturation of 90% on room air and was placed on 2 L of oxygen nasal cannula. With activity in the ED, despite being on 2L of oxygen, he desaturated to 88% and it took about 10 minutes to recover to 90% saturation or greater. A CT chest was done because of suspicion for pneumonia on CXR, and this showed no PE, LLL atelectasis versus pneumonia and the bilateral pleural effusions, rated moderate. The patient is being placed in Observation status to manage his pleural effusions from presumed CHF, a possible community-acquired pneumonia and manage his hypoxia. We discussed CODE BLUE status and he wishes to be a Full Code. - HOSPITAL COURSE Hospital Course: (1) Acute respiratory failure with hypoxia The patient was borderline desaturating at presentation on room air and then definitely desaturating with activity. The etiology appears to be his pleural effusions which are significant (moderate and bilateral). The cause of those is likely CHF. He also may have a community- acquired pneumonia, since an infiltrate seen. We will treat the underlying volume overload and the pneumonia. Continue with supplemental oxygen, weaning down to room air as possible, keeping his sats greater than 90%. (2) CAP (community acquired pneumonia) He has had a chronic cough that he cannot expectorate. He did have diaphoresis and chills on admission morning as well as left pleuritic chest pain. We managed this as if this was consolidation, not atelectasis, to be complete in his care. He could not produce sputum. He was put on empiric antibiotics using oral Zithromax and IV ceftriaxone plus a probiotic. We ordered Mucinex for pulmonary toilet. (3) Acute on chronic diastolic CHF (congestive heart failure), NYHA class 4 He presented with marked and suddenly worsening orthopnea after months of having dyspnea on exertion (this was nearly a Flash pulmonary edema presentation). An Echo was just done a month ago showing significant primary valvular heart disease (moderate to severe mitral regurgitation), and severe LV diastolic heart failure (pseudonormalization of LV inflow seen on his pulsed wave Doppler exam). He was treated here with supplemental O2, IV diuretics, and we also began empiric carvedilol for diastolic heart failure, target resting HR 60. He did not require home O2 at discharge. We stopped HCTZ, started Lasix po. (4) Pleural effusion The etiology is most likely from his CHF since it was bilateral, and not a parapneumonic effusion. We treated him with IV loop diuretic and discharged him on po Lasix, stopping HCTZ. (5) Valvular heart disease This appears to be a primary valvular problem leading to diastolic heart failure. His murmur is loud and audible at the apex and throughout the precordium. He will need Cardiology outpt management and has a referral for a MitraClip repair, he reports. He was given reading material. (6) Abnormal EKG The EKG is consistent with cor pulmonale. There is no old EKG available for comparison. The Echo done 1 month ago did not show right ventricular failure. His troponin levels were flat, consistent with a CHF exacerbation. He did not have a repeat Echo because the service was not available. (7) HTN (hypertension) We continued his Valsartan, stopped his HCTZ and started Lasix, IV the discharged on po Lasix, and also started low-dose carvedilol, for treating his (severe diastolic heart failure and) his HTN. (8) BPH (benign prostatic hyperplasia) We continued his home dose of Finasteride - ALLERGIES Allergies/Adverse Reactions: Allergies Allergy/AdvReac Type Severity Reaction Status Date / Time No Known Drug Allergies Allergy Verified 11/26/21 05:56 - MEDICATIONS Home Medications: Ambulatory Orders Medication Instructions Recorded Confirmed Finasteride 5 mg PO DAILY 09/17/13 11/26/21 Valsartan 160 mg PO DAILY 11/26/21 11/26/21 Azithromycin [Zithromax] 250 mg PO DAILY #2 tablet 11/27/21 Furosemide [Lasix] 20 mg PO DAILY #30 tablet 11/27/21 Magnesium 250 mg PO DAILY #30 tablet 11/27/21 Potassium Chloride [Micro-K] 10 meq PO DAILY #30 cap 11/27/21 carvediloL [Coreg] 3.125 mg PO BID #60 tablet 11/27/21 - PHYSICAL EXAM AT DISCHARGE General Appearance: positive: No acute distress, Alert Eyes Bilateral: positive: Normal inspection, EOMI ENT: positive: ENT inspection nml, No signs of dehydration Neck: positive: Nml inspection, Other ((+) JVD with v waves) Respiratory: positive: Chest non-tender, No respiratory distress, Breath sounds nml Cardiovascular: positive: Regular rate & rhythm, Systolic murmur (3-4/6 harsh, sy-systolic murmur, loudest at apex, but heard throughout precordium.) Abdomen: positive: Non-tender, Nml bowel sounds, No distention Skin: positive: Warm, Dry Extremities: positive: Non-tender, No pedal edema Neurologic/Psychiatric: positive: Oriented x3 (Non-focal) - LABS Result Diagrams: 11/27/21 04:35 11/27/21 04:35 - DIAGNOSTIC IMAGING Diagnostic Imaging Results: Final report reviewed - FOLLOW UP Follow Up: See PCP and Bioinformatics Scientist Dr Gonzales and specialist Dr Patricia, as already scheduled. - TIME SPENT Time Spent in Discharge (Minutes): 50
[2021-11-27 12:08] VITALS: BP 129/90
== END 2021-11-27 12:55 | disposition home or self-care (01) ==
LOC: EDUNIT# → ED 04:46 → MS2 09:30
PROVIDERS: ADMIT Internal Medicine; ATTEND Internal Medicine
DX: J96.01 Acute respiratory failure with hypoxia (principal); J18.9 Pneumonia, unspecified organism; I11.0 Hypertensive heart disease with heart failure; I50.33 Acute on chronic diastolic (congestive) heart failure; J90 Pleural effusion, not elsewhere classified; R94.31 Abnormal electrocardiogram [ECG] [EKG]; N40.0 Benign prostatic hyperplasia without lower urinary tract symptoms; I34.0 Nonrheumatic mitral (valve) insufficiency; Z20.822 Contact with and (suspected) exposure to COVID-19; Z79.899 Other long term (current) drug therapy
CPT/HCPCS: 0202U; 36415; 71046; 71275; 80048; 80053; 83690; 83735; 83880; 84484; 85025; 87205; 93005; 94761; 96365; 96366; 96372; 96375; 96376; 99284; 99285; A9270; G0378; J1650; Q9967; 87070

== ENCOUNTER 2021-12-28 08:06 | Outpatient (CLI) | payer BC ==
--- NOTE | 2021-12-28 10:32 | Ultrasound Report ---
PROCEDURE: Arterial Visceral Complete INDICATIONS: ABDOMINAL BRUIT TECHNIQUE: Real time scanning was performed of both kidneys, followed by Color and pulsed Doppler in terrogation of the renal vessels. COMPARISON: None FINDINGS: Aortic peak systolic velocity: 63 cm/s. Right side: Angelo-scale imaging: Kidney is 10.6 cm long. No Hydronephrosis. No nephrolithiasis. Renal cortex is normal in echogenicity. No suspicious solid renal masses. Proximal renal artery peak systolic velocity: 68 cm/s. Mid renal artery peak systolic velocity: 88 cm/s. Distal renal artery peak systolic velocity: 53 cm/s. Renal vein: Patent, without thrombus. Peak renal/aortic ratio (RAR): 1.4. There are 2 right renal cysts, one of which measures 1.2 cm in diameter in the superior pole and one of which measures 1.5 cm in diameter in the lower pole. Left side: Angelo-scale imaging: Kidney is 11.1 cm long. No hydronephrosis. No nephrolithiasis. Renal cortex i s normal in echogenicity. No suspicious solid renal masses. Proximal renal artery peak systolic velocity: 59 cm/s. Mid-renal artery peak systolic velocity: 65 cm/s. Distal renal artery peak systolic velocity: 56 cm/s. Renal vein: Patent, without thrombus. Peak renal/aortic ratio (RAR): 1.03. There are incidentally noted bilateral pleural effusions which are incompletely characterized on this limited view of the chest. IMPRESSION: 1. No sonographic findings to suggest renal artery stenosis. 2. Incidentally noted bilateral pleural effusions. 3. Bilateral simple renal cysts. Reviewed by: Stefany Zuleta MD on 12/28/2021 10:30 AM PDT Approved by: Stefany Zuleta MD on 12/28/2021 10:30 AM PDT Station ID: [id number]
--- NOTE | 2021-12-28 15:30 | Ultrasound Report ---
PROCEDURE: Duplex Aorta Limited INDICATIONS: ABDOMINAL BRUIT TECHNIQUE: Sonographic images of the aorta were obtained with duplex. COMPARISON: None. FINDINGS: The proximal mid and distal aorta have a velocity of 64 cm/s, 63 cm/s and 58 cm/s respectively. The right common iliac proximal and distal velocity of 82 cm/s and 124 cm/s respectively. The right e xternal iliac arteries, proximal and distal velocity of 74 cm/s and 66 cm/s respectively. The right c ommon femoral artery has a proximal velocity of 72 cm/s. The left common iliac proximal and distal velocity of 98 cm/s and 96 cm/s respectively. The left exte rnal iliac arteries, proximal and distal velocity of 48 cm/s and 78 cm/s respectively. The left commo n femoral artery has a proximal velocity of 74 cm/s. IMPRESSION: No aneurysmal dilation or hemodynamically significant stenosis. Reviewed by: Franchesca Euceda MD on 12/28/2021 3:28 PM PDT Approved by: Franchesca Euceda MD on 12/28/2021 3:28 PM PDT Station ID: [id number]
== END 2021-12-28 08:07 | disposition home or self-care (01) ==
LOC: DI 08:06
PROVIDERS: ATTEND Nurse Practitioner Family
DX: R09.89 Other specified symptoms and signs involving the circulatory and respiratory systems (principal); N28.1 Cyst of kidney, acquired
CPT/HCPCS: 93975; 93979

== ENCOUNTER 2022-01-27 09:53 | Outpatient (CLI) | payer BC ==
[2022-01-27 15:29] LABS: CREATININE 0.8 mg/dL (0.6-1.2); MAGNESIUM 2.3 mg/dL (1.7-2.8); POTASSIUM 3.9 mmol/L (3.5-5.0)
== END 2022-01-27 09:54 | disposition home or self-care (01) ==
LOC: LAB.S 09:53
PROVIDERS: ATTEND Internal Medicine Cardiovascular Disease
DX: Z53.9 Procedure and treatment not carried out, unspecified reason (principal); I50.9 Heart failure, unspecified
CPT/HCPCS: 36415; 80048; 83735

== ENCOUNTER 2022-02-10 10:49 | Outpatient (CLI) | payer BC ==
[2022-02-10] MEDS ORDERED: IOPAMIDOL-300 100 ML VIAL ONE (11:34)
--- NOTE | 2022-02-10 16:30 | CT Report ---
PROCEDURE: IVP INDICATIONS: HEMATUIA CONTRAST: IV CONTRAST: Isovue 300 ml: 140 PO CONTRAST: *NO PO CONTRAST TECHNIQUE: After the administration of oral and intravenous contrast, 5 mm thick sections acquired from the diap hragms to the symphysis. 5 mm thick coronal and sagittal reformats were acquired. For radiation dos e reduction, the following was used: automated exposure control, adjustment of mA and/or kV accordin g to patient size. COMPARISON: CTA chest dated 11/26/2021.. FINDINGS: Image quality: Excellent. Lung bases: Large left pleural effusion, at least moderate right pleural effusion, bibasilar atelecta sis. No significant change from previous CTA chest. Heart size is normal. Urinary system: Both kidneys are normal in size and enhancement. Contrast-filled renal calyces are normal in morphology. Contrast filled portions of both ureters are normal in caliber. Bladder wall thickness is normal. There are at least 5 fairly sizable bladder stones. Prostate is enlarged. Solid organs: Liver and spleen are normal in size and enhancement. Gallbladder is unremarkable. Bi liary system is non dilated. Pancreas enhances normally. No adrenal nodules. Peritoneum and bowel: Bowel loops demonstrate normal wall thickness and caliber. No free fluid or a ir. Nodes and vessels: No retroperitoneal or mesenteric adenopathy by size criteria. Aorta and inferior vena cava are normal in size. Abdominal wall: No ventral hernias. Pelvis: No pathologic free pelvic fluid. No inguinal hernias or adenopathy. Bones: No suspicious bony lesions. No vertebral body compression fractures. IMPRESSION: 1. Large left pleural effusion, at least moderate right pleural effusion, compressive bibasilar atele ctasis. 2. Prostate enlargement with at least 5 bladder stones present. 3. No evidence of renal stones, ureteral stones, hydronephrosis, or malignancy. Reviewed by: Vadim Jiang MD on 02/10/2022 4:28 PM PDT Approved by: Vadim Jiang MD on 02/10/2022 4:28 PM PDT Station ID: [id number]
[2022-02-10] MEDS ORDERED: IOPAMIDOL-300 100 ML VIAL IVP ONE (17:41)
== END 2022-02-10 10:50 | disposition home or self-care (01) ==
LOC: DI 10:49
PROVIDERS: ATTEND Internal Medicine
DX: J90 Pleural effusion, not elsewhere classified (principal); N40.0 Benign prostatic hyperplasia without lower urinary tract symptoms; N21.0 Calculus in bladder; R31.0 Gross hematuria

== ENCOUNTER 2022-02-21 08:51 | Outpatient (CLI) | payer BC ==
[2022-02-21] MEDS ORDERED: IOVERSOL 320 100 ML VIAL IVP ONE (09:26)
--- NOTE | 2022-02-21 13:29 | CT Report ---
PROCEDURE: ANGIO CHEST W/WO INDICATIONS: MITRAL VALVE INSUFFICIENCY CONTRAST: IV CONTRAST: Optiray 320 ml: 100 PO CONTRAST: *NO PO CONTRAST TECHNIQUE: After the administration of intravenous contrast, 2 mm axial images were acquired from the pulmonary apices to the posterior costophrenic angles during the arterial phase. In addition, 1 mm lung kernel and 5 mm soft tissue kernel reconstructions were performed. 3-dimensional coronal oblique maximum int ensity projection (MIP) reformats, 8 mm axial MIP, and 5 mm coronal and sagittal MPR reformats were t hen performed through the thorax. For radiation dose reduction, the following was used: automated exp osure control, adjustment of mA and/or kV according to patient size. COMPARISON: 11/26/2021 CT. FINDINGS: Image quality: Excellent. Pulmonary arteries: Pulmonary arteries are normal in size, and demonstrate no intraluminal filling d efects to suggest central pulmonary embolism. Lungs and pleura: Compressive atelectasis within the bilateral lower lobes is unchanged. No pneumotho rax. Large left and moderate right pleural effusions are unchanged. Central and peripheral airways ar e patent. Mediastinum: Heart size is normal, without pericardial effusion. No mediastinal or hilar adenopathy . Thoracic aorta is normal in caliber and enhancement. Esophagus is normal in caliber, without hiat al hernia. Bones and chest wall: No suspicious bony lesions. Ribs and thoracic spine appear intact throughout. No axillary or supraclavicular adenopathy. The thyroid is normal in size and there are no incident al findings. Abdomen: Visualized portions of the upper abdomen demonstrate a small diverticulum of the gastric ca rdia, as before, and are otherwise unremarkable. IMPRESSION: 1. No pulmonary embolus. No evidence of aortic aneurysm. 2. No change in left greater than right pleural effusions. 3. 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 Reviewed by: Glenn Lipscomb MD on 02/21/2022 1:28 PM PDT Approved by: Glenn Lipscomb MD on 02/21/2022 1:28 PM PDT Station ID: [id number]
--- NOTE | 2022-02-21 13:33 | CT Report ---
PROCEDURE: ANGIO ABDOMEN/PELVIS W INDICATIONS: MITRAL VALVE INSUFFICIENCY CONTRAST: IV CONTRAST: Optiray 320 ml: 100 PO CONTRAST: *NO PO CONTRAST TECHNIQUE: After the administration of intravenous contrast, 2.5 mm thick sections acquired from the diaphragm t o the symphysis. 10 mm maximum-intensity projection (MIP) reformats were then acquired. For radiati on dose reduction, the following was used: automated exposure control, adjustment of mA and/or kV ac cording to patient size. COMPARISON: 11/26/2021 CT examination. FINDINGS: Image quality: Excellent. Large left and moderate right pleural effusions with compressive bibasilar atelectasis is unchanged. Heart size is normal. Liver and spleen are normal in size. Right hepatic lobe hemangioma is unchanged. Gallbladder is withi n normal limits. Biliary system is non dilated. Pancreas enhances normally. No adrenal nodules. K idneys are normal in size and enhancement, without hydronephrosis. Non opacified bowel loops are nor mal in wall thickness and caliber. Normal appendix. Small diverticulum of the gastric cardia is uncha nged. No free fluid or air. No retroperitoneal or mesenteric adenopathy. Moderate diffuse plaque ca uses mild diffuse stenosis of the abdominal aorta. No aneurysm nor dissection. Celiac, superior mesen teric, and inferior mesenteric arteries are patent. Single bilateral renal arteries are present which are patent. There is a left-sided IVC. No ventral hernias. No suspicious bony lesions. Prostate is enlarged. Multiple nonobstructing calculi within the urinary bladder, largest of which measures 12 m m diameter. No vertebral body compression fractures. IMPRESSION: 1. Left greater than right pleural effusions. 2. Mild diffuse calcific plaque of the abdominal aorta. Otherwise negative CT angiography examination . 3. No change in right hepatic lobe hemangioma. 4. Normal appendix. 5. Prostate enlargement. Recommend correlation with urinalysis. 6. Multiple urinary bladder calculi. Reviewed by: Glenn Lipscomb MD on 02/21/2022 1:32 PM PDT Approved by: Glenn Lipscomb MD on 02/21/2022 1:32 PM PDT Station ID: [id number]
== END 2022-02-21 08:52 | disposition home or self-care (01) ==
LOC: DI 08:51
PROVIDERS: ATTEND Thoracic Surgery (Cardiothoracic Vascular Surgery)
DX: Z01.810 Encounter for preprocedural cardiovascular examination (principal); I34.0 Nonrheumatic mitral (valve) insufficiency; J90 Pleural effusion, not elsewhere classified; I70.0 Atherosclerosis of aorta; D18.09 Hemangioma of other sites; N40.0 Benign prostatic hyperplasia without lower urinary tract symptoms; N21.0 Calculus in bladder
CPT/HCPCS: 71275; 74174; Q9967

== ENCOUNTER 2022-05-01 08:28 | Outpatient (CLI) | payer BC | END 2022-05-01 08:29 | disposition home or self-care (01) | LOC: DI 08:28 | PROVIDERS: ATTEND Internal Medicine Cardiovascular Disease | DX: Z95.4 Presence of other heart-valve replacement (principal); I34.0 Nonrheumatic mitral (valve) insufficiency; Z95.818 Presence of other cardiac implants and grafts | CPT/HCPCS: 93306 ==

== ENCOUNTER 2022-10-02 09:14 | Outpatient (CLI) | payer BC ==
[2022-10-02 14:50] LABS: PSA FREE 1.68 ng/mL (0.16-2.81)
[2022-10-02 14:51] LABS: PSA TOTAL 7.97 ng/mL (0.000-2.000)
== END 2022-10-02 09:15 | disposition home or self-care (01) ==
LOC: LAB.S 09:14
PROVIDERS: ATTEND Urology
DX: R97.20 Elevated prostate specific antigen [PSA] (principal)
CPT/HCPCS: 36415; 84153; 84154

== ENCOUNTER 2023-11-20 09:06 | Outpatient (CLI) | payer BC | END 2023-11-20 09:07 | disposition home or self-care (01) | LOC: LAB.S 09:06 | PROVIDERS: ATTEND Urology | DX: N40.1 Benign prostatic hyperplasia with lower urinary tract symptoms (principal); N13.8 Other obstructive and reflux uropathy | CPT/HCPCS: 36415; 84153; 84154 ==

== ENCOUNTER 2024-06-11 09:03 | Outpatient (CLI) | payer BC ==
[2024-06-11 15:37] LABS: CALCIUM 9.5 mg/dL (8.5-10.3); CREATININE 0.8 mg/dL (0.6-1.3)
== END 2024-06-11 09:04 | disposition home or self-care (01) ==
LOC: LAB.S 09:03
PROVIDERS: ATTEND Internal Medicine Cardiovascular Disease
DX: I10 Essential (primary) hypertension (principal)
CPT/HCPCS: 36415; 80048